=== PATIENT | male | born 1965 | race Caucasian/White ===

== ENCOUNTER 2017-11-29 11:26 | Emergency (ER) | payer BC ==
[~2017-11-29] VITALS: Ht 180.3 cm; Wt 92.7 kg
[2017-11-29 12:21] LABS: HEMATOCRIT 42.2 % (38.0-50.0); HEMOGLOBIN 15.3 G/DL (12.5-16.6); MCH 36.1 PG (29.0-34.0); MCHC 36.3 G/DL (30.0-36.0); MCV 99.5 FL (86-99); PLATELET COUNT 167 K/uL (156-360); RBC DIS.WIDTH-CV 12.5 % (11.8-14.6); RED BLOOD COUNT 4.24 M/uL (4.00-5.50); WHITE BLOOD COUNT 13.1 K/uL (4.1-10.2)
[2017-11-29 12:32] LABS: ALBUMIN 4.3 g/dL (3.2-4.8); CHLORIDE 101 mEq/L (99-109); POTASSIUM 4.1 mEq/L (3.7-5.4); SODIUM 139 mEq/L (136-147)
[2017-11-29 12:34] LABS: GLUCOSE 130 mg/dL (70-99); TOTAL PROTEIN 7.3 g/dL (6.4-8.3)
[2017-11-29 12:36] LABS: TOTAL BILIRUBIN 0.9 mg/dL (0.0-1.0)
[2017-11-29 12:38] LABS: ALKALINE PHOSPHATASE 62 IU/L (3-129); CREATININE 0.8 mg/dL (0.6-1.3); GFR ESTIMATE (CALCULATED) > 59 mL/min/ (58.99-99999)
[2017-11-29 12:39] LABS: UREA NITROGEN (BUN) 28 mg/dL (9-23)
[2017-11-29 12:40] LABS: AST (GOT) 81 IU/L (2-34)
[2017-11-29 12:41] LABS: ALT (GPT) 83 IU/L (3-49)
[2017-11-29 13:22] LABS: TROP-I INTERPRETATION NEGATIVE; TROPONIN-I < 0.01 ng/mL (0.0-0.30)
[2017-11-29 14:00] LABS: LIPASE 31 U/L (1.0-51.0)
[2017-11-29 15:08] LABS: APPEARANCE CLEAR ((CLEAR)); BILIRUBIN NEGATIVE; BLOOD NEGATIVE; COLOR YELLOW ((YELLOW)); GLUCOSE (STRIP) NEGATIVE; KETONES NEGATIVE; LEUKOCYTES SMALL; NITRITE NEGATIVE; PROTEIN (STRIP) 30
[2017-11-29 15:15] LABS: SPECIFIC GRAVITY > 1.060 (1.000-1.030)
[2017-11-29 15:22] LABS: BACTERIA RARE /HPF; EPITHELIAL CELLS 1+ /HPF; MUCUS NONE SEEN /LPF; RED BLOOD CELLS 0-5 /HPF (0-5); UCUL ADDED? YES; WHITE BLOOD CELLS 15-20 /HPF (0-5)
[2017-11-29 15:42] LABS: TROP-I INTERPRETATION NEGATIVE; TROPONIN-I < 0.01 ng/mL (0.0-0.30)
[2017-11-29] MEDS ORDERED: CARAFATE1 GM PO (16:15)
[2017-11-29] MEDS ORDERED: OMEPRAZOLE40 M1 PO (16:15)
[2017-11-29 17:12] VITALS: BP 133/74
== END 2017-11-29 17:23 | disposition home or self-care (01) ==
LOC: EME 11:26
PROVIDERS: Physician Assistant Medical
DX: R10.13 Epigastric pain (principal); F17.200 Nicotine dependence, unspecified, uncomplicated
CPT/HCPCS: 74177; 80053; 81003; 83690; 84484; 85027; 87086; 93005; 99281; 99284; J2405; J7030; S0028